=== PATIENT | male | born 1965 | race Hispanic/Latino ===

== ENCOUNTER 2019-11-10 08:19 | Emergency (ER) | payer OTHER, SELFPAY ==
--- NOTE | 2019-11-10 09:20 | RAD ---
RIGHT WRIST RADIOGRAPHS 3 VIEWS: DATE: 11/10/2019. PROVIDED CLINICAL HISTORY: Pain status post injury. FINDINGS: There is a comminuted intraarticular distal radial fracture with associated impaction of the distal r adial articular surface. No additional fracture is evident. Alignment appears otherwise anatomic. IMPRESSION: Comminuted intraarticular distal radial fracture. POS: [facility]
--- NOTE | 2019-11-10 09:26 | RAD ---
RIGHT ELBOW RADIOGRAPHS 4 VIEWS: DATE: 11/10/2019. PROVIDED CLINICAL HISTORY: Pain status post injury. FINDINGS: No evidence for a fracture or other acute osseous abnormality. If there is persistent clinical hubert rn, conservative management and followup imaging are advised. IMPRESSION: As above. POS: [facility]
[2019-11-10] MEDS ORDERED: Adacel (T-DAP) 0.5 ML SYRINGE ONE (09:49)
--- NOTE | 2019-11-10 11:13 | RAD ---
LEFT LEG 2 VIEWS: History Trauma, left leg pain. FINDINGS/IMPRESSION: The left tibia and fibula are intact. There is incomplete visualization of metallic hardware in the distal femur. POS: [facility]
--- NOTE | 2019-11-10 11:35 | RAD ---
LEFT HIP 2 VIEWS: HISTORY: Trauma, left hip pain. FINDINGS/IMPRESSION: Comparison is made with the exam of 09/03/2016. An internally fixed and healed fracture of the left proximal femur is seen. Metallic hardware is int act and remains in place. Old healed fracture of the left acetabulum is again seen. There is a cortical step-off at the lateral aspect of the subcapital neck of the left proximal femur which most likely represents an osteophyte and is less likely to represent a fracture. The study was interpreted in consultation with Dr. Garrett Walsh who concurs. POS: [facility]
== END 2019-11-10 11:20 | disposition home or self-care (01) ==
LOC: ERS 08:19
DX: S52.571A Other intraarticular fracture of lower end of right radius, initial encounter for closed fracture (principal); V86.59XA Driver of other special all-terrain or other off-road motor vehicle injured in nontraffic accident, initial encounter
CPT/HCPCS: 29125; 90471; 90715